=== PATIENT | female | born 1975 | race Caucasian/White ===

== ENCOUNTER 2017-07-13 12:43 | Emergency (ER) | payer MEDICAID ==
[~2017-07-13] VITALS: Ht 167.6 cm; Wt 90.7 kg
[2017-07-13 12:44] VITALS: BP_SYST 132
[2017-07-13 13:20] LABS: BASOPHILS % (AUTO) 0.8 % (0.0-2.0); EOSINOPHILS # (AUTO) 0.4 K/uL (0.0-0.4); EOSINOPHILS % (AUTO) 7.6 % (0.0-4.0); HEMATOCRIT 41.9 % (36-48); LYMPHOCYTES # (AUTO) 2.3 K/uL (1.0-5.5); MEAN CORPUSCULAR HEMOGLOBIN 27 pg (27-31); MEAN CORPUSCULAR HGB CONC 33 % (32-36); MEAN CORPUSCULAR VOLUME 80 fL (79.0-98.0); MONOCYTES # (AUTO) 0.5 K/uL (0.0-1.0); MONOCYTES % (AUTO) 8.8 % (1.7-9.3); NEUTROPHILS # (AUTO) 2.6 K/uL (1.8-7.7); NEUTROPHILS % (AUTO) 43.8 % (40.0-70.0); PLATELET COUNT (AUTO) 276 K/uL (130-430); RED BLOOD CELL COUNT(AUTO) 5.25 MIL/uL (4.2-6.2); RED CELL DISTRIBUTION WIDTH 13.1 % (9.0-15.0); WHITE BLOOD COUNT (AUTO) 5.8 K/uL (4.8-10.8)
[2017-07-13 13:26] LABS: CALCIUM 9.6 mg/dL (8.4-11.0); CREATININE 0.71 mg/dL (0.55-1.30)
[2017-07-13 13:31] LABS: TOTAL BILIRUBIN 0.6 mg/dL (0.0-1.0)
[2017-07-13 13:32] LABS: BILIRUBIN,URINE NEGATIVE (NEGATIVE); BLOOD, URINE NEGATIVE (NEGATIVE); CLARITY/URINE CLEAR (CLEAR); COLOR,URINE YELLOW (YELLOW); GLUCOSE,URINE NEGATIVE (NEGATIVE); KETONES,URINE NEGATIVE (NEGATIVE); LEUKOCYTE ESTERASE ,URINE NEGATIVE (NEGATIVE); NITRITE, URINE NEGATIVE (NEGATIVE); PROTEIN URINE NEGATIVE (NEGATIVE); UROBILINOGEN,URINE 0.2 (0.2-1.0)
[2017-07-13 14:14] VITALS: BP_SYST 120
== END 2017-07-13 14:13 | disposition home or self-care (01) ==
LOC: SED 12:43
DX: N89.8 Other specified noninflammatory disorders of vagina (principal); M54.5 Low back pain
CPT/HCPCS: 36415; 74000-TC; 76830-TC; 76857; 80053; 81003; 81025; 83690-TC; 85025; 99285

== ENCOUNTER 2024-06-17 18:15 | Emergency (ER) | payer MEDICAID ==
[~2024-06-17] VITALS: Ht 157.5 cm; Wt 81.6 kg
[2024-06-17 18:25] VITALS: BP_SYST 118; PULSE 87; RESP 18; TEMP 98; O2SAT 99
[2024-06-17] MEDS: KETOROLAC TROMETHAMINE 30 MG VIAL IM ONE (21:05)
[2024-06-17] MEDS ORDERED: ACET-2634 PO (21:54)
[2024-06-17] MEDS ORDERED: IBUP-1969 PO (21:54)
[2024-06-17 22:21] VITALS: BP_SYST 118; PULSE 87; RESP 18; TEMP 98; O2SAT 99
== END 2024-06-17 22:00 | disposition home or self-care (01) ==
LOC: SED 18:15
DX: M25.562 Pain in left knee (principal); M25.561 Pain in right knee; E11.9 Type 2 diabetes mellitus without complications; Z79.899 Other long term (current) drug therapy
CPT/HCPCS: 99285; 93970; 73560; 96372; J1885